=== PATIENT | male | born 1970 | race Caucasian/White ===

== ENCOUNTER 2018-02-04 10:47 | Emergency (ER) | END 2018-02-04 14:10 | disposition home or self-care (01) ==

== ENCOUNTER 2018-02-28 13:56 | Emergency (ER) | END 2018-02-28 19:00 | disposition home or self-care (01) ==

== ENCOUNTER 2018-10-16 16:11 | Emergency (ER) | payer MEDICAID ==
[~2018-10-16] VITALS: Ht 172.7 cm; Wt 78.2 kg
[~2018-10-16 16:11] MED LIST: IBUP800T48 PO; TRAM50TA2 PO
[2018-10-16 16:15] VITALS: Ht 172.7 cm; Wt 78.2 kg
[2018-10-16] MEDS ORDERED: ASPIRIN 325 MG TAB PO STA (19:35)
[2018-10-16] MEDS ORDERED: NITROGLYCERIN 2% 1 GM OINT PKT TD STA (19:35)
--- NOTE | 2018-10-16 19:42 | ERD ---
ER Documentation Chief Complaint Chief Complaint Complains of chest pain since this am HPI This a 47-year-old male with a history of high cholesterol who is complaining of chest pain. The patient says he has had off and on substernal chest pressure with left-sided sharp pain with left arm numbness for the past 2 days. He says it happens at rest or with exertion. He is a very poor historian. No radiation into the neck back or abdomen. No shortness of breath no palpitations. He says sometimes is worse when he pushes on it but is a different type of pain. No heartburn. No prior history of cardiac disease. Does not smoke ROS All systems reviewed and are negative except as per history of present illness. Medications Home Meds Discontinued Scripts Tramadol HCl (Tramadol HCl) 50 Mg Tablet, 50 MG PO Q6 PRN for PAIN, #20 TAB Prov:DALTON BURROUGHS PA-C 02/28/18 Ibuprofen* (Motrin*) 800 Mg Tab, 800 MG PO Q6H PRN for PAIN AND OR ELEVATED TE MP, #30 TAB Prov:JIM TREJO MD 02/04/18 Allergies Allergies: Coded Allergies: acetaminophen (Unverified Adverse Reaction, Unknown, 10/16/18) PMhx/Soc History of Surgery: No Anesthesia Reaction: No Hx Neurological Disorder: No Hx Respiratory Disorders: No Hx Cardiac Disorders: Yes (HTN,HIGH CHOLESTEROL) Hx Psychiatric Problems: No Hx Miscellaneous Medical Probl: No Hx Alcohol Use: No Hx Substance Use: No Hx Tobacco Use: No FmHx Family History: No coronary disease Physical Exam Vitals Vital Signs Date Temp Pulse Resp B/P (MAP) Pulse Ox O2 O2 Flow FiO2 Time Delivery Rate 10/16/18 98.4 75 20 123/79 97 16:15 (94) Physical Exam Const: Well-developed, well-nourished Head: Atraumatic, normocephalic Eyes: Normal Conjunctiva, PERRLA, EOMI, normal sclera, no nystagmus ENT: Normal External Ears, Nose and Mouth, moist mucus membranes. Neck: Full range of motion. No meningismus, no lymphadenopathy. Resp: Clear to auscultation bilaterally, no wheezing, rhonchi, rales, the anterior chest is somewhat tender to palpation but he says it is a bit different pain he is having at home Cardio: Regular rate and rhythm, no murmurs, S1 S2 present Abd: Soft, non tender x 4, non distended. Normal bowel sounds, no guarding or rebound, no pulsitile abdominal masses or bruits Skin: No petechiae or rashes, no ecchymosis , no maculopapular rash Back: No midline or flank tenderness Ext: No cyanosis, or edema, FROM x 4, normal inspection, neurovascularly intact x 4 Neur: Awake and alert, STR 5/5 x 4, sensation intact x 4, no focal findings, cerebellum intact Psych: Normal Mood and Affect Result Diagram: 10/16/18194610/16/181947 Results 24 hrs Laboratory Tests Test 10/16/18 19:47 10/16/18 19:48 White Blood Count 7.7 10^3/ul Red Blood Count 4.89 10^6/ul Hemoglobin 14.9 g/dl Hematocrit 44.5 % Mean Corpuscular Volume 91.0 fl Mean Corpuscular Hemoglobin 30.5 pg Mean Corpuscular Hemoglobin Concent 33.5 g/dl Red Cell Distribution Width 12.4 % Platelet Count 182 10^3/UL Mean Platelet Volume 10.4 fl Immature Granulocytes % 0.300 % Neutrophils % 65.8 % Lymphocytes % 22.8 % Monocytes % 7.8 % Eosinophils % 2.9 % Basophils % 0.4 % Nucleated Red Blood Cells % 0.0 /100WBC Immature Granulocytes # 0.020 10^3/ul Neutrophils # 5.1 10^3/ul Lymphocytes # 1.8 10^3/ul Monocytes # 0.6 10^3/ul Eosinophils # 0.2 10^3/ul Basophils # 0.0 10^3/ul Nucleated Red Blood Cells # 0.0 10^3/ul Sodium Level 141 mmol/L Potassium Level 4.0 mmol/L Chloride Level 102 mmol/L Carbon Dioxide Level 31 mmol/L Anion Gap 8 Blood Urea Nitrogen 28 mg/dl Creatinine 1.47 mg/dl Est Glomerular Filtrat Rate mL/min 51 mL/min Glucose Level 101 mg/dl Calcium Level 9.9 mg/dl Total Bilirubin 0.2 mg/dl Direct Bilirubin 0.00 mg/dl Indirect Bilirubin 0.2 mg/dl Aspartate Amino Transf (AST/SGOT) 22 IU/L Alanine Aminotransferase (ALT/SGPT) 21 IU/L Alkaline Phosphatase 50 IU/L Troponin I < 0.012 ng/ml Total Protein 7.9 g/dl Albumin 4.4 g/dl Globulin 3.50 g/dl Albumin/Globulin Ratio 1.25 Current Medications Medications Dose Sig/Adamaris Start Time Status Last (Trade) Ordered Route PRN Stop Time Admin Dose Reason Admin Aspirin 325 mg ONCE STAT 10/16/18 DC 10/16/18 (Aspirin) PO 19:35 10/16/18 20:04 19:36 1 inch ONCE STAT 10/16/18 DC 10/16/18 Nitroglycerin TD 19:35 10/16/18 20:05 19:36 (Nitroglyceri n 2% Oint) Procedures/MDM EKG: Rate/Rhythm: Normal Sinus Rhythm,NL intervals QRS, ST, QT: NORMAL IN, QRS, QT] Impression: NORMAL EKG Ordering MD: MICHEAL TREVINO DO Location: E/R Room/Bed: PROCEDURE: XR Chest. CLINICAL INDICATION: Chest pain TECHNIQUE: Single frontal view of the chest was obtained COMPARISON: Chest x-ray 02/28/2018 FINDINGS: The cardiomediastinal silhouette is within normal limits. No pneumothorax, pleural effusion, or consolidation is identified. There is no evidence of pulm onary vascular congestion. There is degenerative enthesopathy of the visualized spine. IMPRESSION: No evidence of an acute cardiopulmonary process. RPTAT: HRC Physician Stefany Date Time Electronically viewed and signed by Krzysztof Montes Physician on 10/16/2018 20:36 RC/ CC: MICHEAL TREVINO DO [id number] Cardiac Admit MDM: Patient's symptoms are concerning for cardiac cause will require inpatient workup and continuous monitoring. Further w/u for ischemia, arrhythmia, PE or dissection will be deferred to the inpatient team. Departure Diagnosis: Primary Impression: Chest pain Chest pain type: unspecified Qualified Codes: R07.9 - Chest pain, unspecified Condition: Stable MICHEAL TREVINO DO Oct 16, 2018 19:42
[2018-10-16] MEDS ORDERED: ONDANSETRON 4 MG INJ IV PRN ×2 (21:30→22:00)
--- NOTE | 2018-10-16 21:34 | HP ---
Date/Time of Note Date/Time of Note DATE: 10/16/18 TIME: 21:34 Assessment/Plan VTE Prophylaxis SCD applied (from Nsg): Yes Pharmacological prophylaxis: NA/contraindicated Pharm contraindication: low risk/ambulating Lines/Catheters IV Catheter Type (from Nrsg): Saline Lock Assessment/Plan Hospital Course This is a 47-year male being admitted to the telemetry floor for: #1 chest pain: Rule out ACS versus musculoskeletal: Patient does have palpable tenderness over the sternal area, however given his numbness of the left arm there is concern in the ED for possible ACS. Initial troponin was negative. EKG was nonischemic. Recommendation is to admit the patient to telemetry trend cardiac enzymes and obtain an echocardiogram. However patient reports that he is feeling better and that he wants to go home. I did recommend the patient to stay to have a formal cardiac evaluation however patient would like to go home AGAINST MEDICAL ADVICE. I did explain the risks and benefits of going home such as . Patient understands however he still wishes to go home AGAINST MEDICAL ADVICE. #2 chronic kidney disease: Creatinine is 1.47 which appears to be around his baseline. Avoid nephrotoxic agents. Recommend ordering urine microalbumin and avoiding NSAIDs. Patient however would like to leave AGAINST MEDICAL ADVICE. #3 DVT GI prophylaxis: SCDs, no GI prophylaxis indicated Disposition: Recommendation was for the patient to be admitted to the telemetry floor for monitoring however patient reports that he is feeling better and that he wants to go home. The risks and benefits of leaving AGAINST MEDICAL ADVICE such as , were explained to the patient however he would still like to leave AMA. Patient will be filling out the AMA form. Result Diagram: 10/16/18194610/16/181947 Results 24hrs Laboratory Tests Test 10/16/18 19:47 10/16/18 19:48 White Blood Count 7.7 Red Blood Count 4.89 Hemoglobin 14.9 Hematocrit 44.5 Mean Corpuscular Volume 91.0 Mean Corpuscular Hemoglobin 30.5 Mean Corpuscular Hemoglobin Concent 33.5 Red Cell Distribution Width 12.4 Platelet Count 182 Mean Platelet Volume 10.4 Immature Granulocytes % 0.300 Neutrophils % 65.8 Lymphocytes % 22.8 Monocytes % 7.8 Eosinophils % 2.9 Basophils % 0.4 Nucleated Red Blood Cells % 0.0 Immature Granulocytes # 0.020 Neutrophils # 5.1 Lymphocytes # 1.8 Monocytes # 0.6 Eosinophils # 0.2 Basophils # 0.0 Nucleated Red Blood Cells # 0.0 Sodium Level 141 Potassium Level 4.0 Chloride Level 102 Carbon Dioxide Level 31 Anion Gap 8 Blood Urea Nitrogen 28 H Creatinine 1.47 H Est Glomerular Filtrat Rate mL/min 51 L Glucose Level 101 Calcium Level 9.9 Total Bilirubin 0.2 Direct Bilirubin 0.00 Indirect Bilirubin 0.2 Aspartate Amino Transf (AST/SGOT) 22 Alanine Aminotransferase (ALT/SGPT) 21 Alkaline Phosphatase 50 Troponin I < 0.012 Total Protein 7.9 Albumin 4.4 Globulin 3.50 H Albumin/Globulin Ratio 1.25 HPI/ROS Admit Date/Time Admit Date/Time Hx of Present Illness Chief complaint: Chest pain This a 47-year-old male with a history of high cholesterol who is complaining of chest pain. The patient says he has had off and on substernal chest pressure with left-sided sharp pain with left arm numbness for the past 2 days. He says it happens at rest or with exertion. He does report that while at work a wooden object may have hit his chest. No radiation into the neck back or abdomen. No shortness of breath no palpitations. He says sometimes is worse when he pushes on it but is a different type of pain. No heartburn. No prior history of cardiac disease. Allergies: Ibuprofen Medications: None ROS Const: As per HPI Eyes : No pain discharge or redness or change in visual acuity ENT: No pain, sore throat, congestion, congestion, dysphagia or discharge Respiratory: No shortness of breath, cough, sputum, wheezing, or pleuritic pain Cardiovascular: As per HPI GI : no change in appetite, abdominal pain, nausea, vomiting, diarrhea, constipation, or change in the color his stool Genitourinary: No dysuria, hematuria, flank pain , discharge or CVA tenderness Musculoskeletal: No joint pain, back pain, neck pain, restricted range of motion in neck or joints Skin: No rash, bruising or hives Neuro: No headache, dizziness, syncope, seizure, focal weakness Endocrine: No polyuria, polydipsia, temperature intolerance Psych: No hallucination, depression, anxiety or suicidal ideation PMH/Family/Social Past Medical History Chronic kidney diseaseunspecified Medications Current Medications Ondansetron HCl (Zofran Inj) 4 mg ER BRIDGE PRN IV NAUSEA AND/OR VOMITING; Start 10/16/18 at 21:30; Stop 10/17/18 at 21:29 Coded Allergies: acetaminophen (Unverified Adverse Reaction, Unknown, 10/16/18) Past Surgical History Past Surgical Hx: no surgical history Family History Significant Family History: no pertinent family hx Social History Alcohol Use: none Smoking Status: Never smoker Drug Use: none Exam/Review of Systems Vital Signs Vitals Vital Signs Date Temp Pulse Resp B/P (MAP) Pulse Ox O2 O2 Flow FiO2 Time Delivery Rate 10/16/18 98.4 75 20 123/79 97 16:15 (94) Exam Exam General: Patient is a pleasant male currently sitting upright in bed in no acute distress HEENT: Atraumatic, normocephalic. The pupils are equal, round and reactive. Extraocular motor are intact Neck: Supple with full range of motion. No rigidity or meningismus Chest: Tenderness to palpation over the sternal area Lungs: Clear to auscultation bilaterally no crackles rales or wheezing Heart: Normal S1-S2, Regular rhythm and rate. No overt murmurs appreciated on auscultation Abdomen: Soft , nontender, nondistended , bowel sounds are present. No guarding no rebound tenderness , No masses or organomegaly. No costovertebral temporal angle mass Extremities: Normal to inspection, no edema no cyanosis Neurologic: Normal mental status, speech normal, cranial nerves II through XII are intact, motor and sensory are intact, no focal weakness Additional Comments PROCEDURE: XR Chest. CLINICAL INDICATION: Chest pain TECHNIQUE: Single frontal view of the chest was obtained COMPARISON: Chest x-ray 02/28/2018 FINDINGS: The cardiomediastinal silhouette is within normal limits. No pneumothorax, pleural effusion, or consolidation is identified. There is no evidence of pulmonary vascular congestion. There is degenerative enthesopathy of the visualized spine. IMPRESSION: No evidence of an acute cardiopulmonary process. RPTAT: HRC Physician Stefany Date Time Electronically viewed and signed by Krzysztof Montes Physician on 10/16/2018 20:36 RC/ CC: MICHEAL TREVINO DO [id number] EKG: Rate/Rhythm: Normal Sinus Rhythm,NL intervals QRS, ST, QT: NORMAL VA, QRS, QT] Impression: NORMAL EKG SHEREE YOUNG Oct 16, 2018 21:34
[2018-10-16 21:50] VITALS: BP 124/91; PULSE 62; RESP 15
[2018-10-16] MEDS ORDERED: DOCUSATE SODIUM 100 MG CAP PO PRN (22:00)
[2018-10-16] MEDS ORDERED: ACETAMINOPHEN 325 MG TAB PO PRN (22:00)
[2018-10-16] MEDS ORDERED: BISACODYL (EC) 5 MG TAB PO PRN (22:00)
[2018-10-16] MEDS ORDERED: NACL 0.9% 3 ML SYG IV SCH (22:00)
[2018-10-16] MEDS ORDERED: NITROGLYCERIN (SL) 0.4 MG TAB SL PRN (22:00)
[2018-10-17] MEDS ORDERED: ASPIRIN 81 MG TAB PO SCH (09:00)
== END 2018-10-16 21:50 | disposition left against medical advice (07) ==
LOC: E/R 16:11 → CANBEDREQ 10-18 19:54
DX: R07.9 Chest pain, unspecified (principal); I10 Essential (primary) hypertension
CPT/HCPCS: 36415; 71045; 80053; 84484; 85025; 93005; Z7502; Z7610

== ENCOUNTER 2018-10-25 14:12 | Emergency (ER) | payer MEDICAID ==
[~2018-10-25] VITALS: Wt 77.0 kg
--- NOTE | 2018-10-25 14:46 | ERD ---
ER Documentation Chief Complaint Chief Complaint bib self, cc: chest pain HPI The patient is a 47-year-old male, presenting to the ER because of intermittent left-sided chest pain, worse with movement, denies chest pain with vomiting/radiation/exertion/diaphoresis, dyspnea, abdominal pain, vomiting, dysuria diarrhea. He was seen on October 16, 2018 and had extensive studies that were unremarkable He does not smoke nor drink nor does illicit drug. Past medical history: Peptic ulcer Past surgical history: None ROS All systems reviewed and are negative except as per history of present illness. Medications Home Meds No Active Prescriptions or Reported Meds Allergies Allergies: Coded Allergies: acetaminophen (Unverified Adverse Reaction, Unknown, 10/16/18) PMhx/Soc History of Surgery: No Anesthesia Reaction: No Hx Neurological Disorder: No Hx Respiratory Disorders: No Hx Cardiac Disorders: Yes (HTN,HIGH CHOLESTEROL) Hx Psychiatric Problems: No Hx Miscellaneous Medical Probl: No Hx Alcohol Use: No Hx Substance Use: No Hx Tobacco Use: No Physical Exam Vitals Vital Signs Date Temp Pulse Resp B/P (MAP) Pulse Ox O2 O2 Flow FiO2 Time Delivery Rate 10/25/18 82 20 130/80 99 Room Air 15:35 (97) 10/25/18 99.4 84 19 111/64 99 14:14 (80) Physical Exam Const: No acute distress. Head: Atraumatic. Eyes: Normal Conjunctiva. ENT: Normal External Ears, Nose and Mouth. Neck: Full range of motion. No meningismus. Resp: Clear to auscultation bilaterally. Cardio: Regular rate and rhythm. Left chest discomfort on palpation, no crepitus Abd: Soft, non distended, normal bowel sounds, non tender. Skin: No petechiae or rashes. Back: No midline or flank tenderness. Ext: No cyanosis, or edema. Neur: Awake and alert. No focal deficit Psych: Normal Mood and Affect. Procedures/MDM EKG: Read by emergency physician Rate/Rhythm: Normal Sinus Rhythm 77 beats/min QRS, ST, T-waves: No ST elevation, no T inversion Impression: Normal EKG MEDICAL MAKING DECISION: The patient is a 47-year-old male, presenting with intermittent left-sided chest discomfort, most likely musculoskeletal. I do not suspect any acute ACS, is stable for o/p follow-up The differential diagnoses considered include but are not limited to acute coronary syndrome, acute myocardial infarction, pericarditis, pulmonary embolism, aortic dissection, pneumonia, pleural effusion, pneumothorax, GERD, chest wall pain. Departure Diagnosis: Primary Impression: Chest pain Condition: Good Comments I discussed the findings with the patient. I advised the patient to follow-up with the primary physician in about 2-3 days, sooner if needed and return if any concern. Disclaimer: Inadvertent spelling and grammatical errors are likely due to EHR/dictation software use and do not reflect on the overall quality of patient care. Also, please note that the electronic time recorded on this note does not necessarily reflect the actual time of the patient encounter. ALVARO SANCHEZ MD Oct 25, 2018 14:46
[2018-10-25 15:35] VITALS: BP 130/80; PULSE 82; RESP 20
== END 2018-10-25 15:35 | disposition home or self-care (01) ==
LOC: E/R 14:12
DX: R07.9 Chest pain, unspecified (principal); I10 Essential (primary) hypertension
CPT/HCPCS: 93005; Z7502

== ENCOUNTER 2018-11-23 14:04 | Emergency (ER) | payer MEDICAID ==
[~2018-11-23] VITALS: Ht 162.6 cm; Wt 79.3 kg
[2018-11-23 14:21] VITALS: BP 122/64; PULSE 106; RESP 20; Ht 162.6 cm; Wt 79.3 kg
--- NOTE | 2018-11-23 19:00 | ERD ---
ER Documentation Chief Complaint Chief Complaint LEFT ARM/HAND PAIN HPI 48-year-old male, presents the emergency department, complaining of left ring finger pain after sustaining direct trauma 2 weeks ago. The patient states that in the mornings he feels stiffness of the digit that is slowly improved during the day. He denies distal weakness, numbness or tingling. No medications taken for pain. ROS All systems reviewed and are negative except as per history of present illness. Medications Home Meds Active Scripts Ibuprofen* (Motrin*) 400 Mg Tab, 400 MG PO Q8, #30 TAB Prov:NICKY LUGO MD 11/23/18 Allergies Allergies: Coded Allergies: acetaminophen (Unverified Adverse Reaction, Unknown, 10/16/18) PMhx/Soc History of Surgery: No Anesthesia Reaction: No Hx Neurological Disorder: No Hx Respiratory Disorders: No Hx Cardiac Disorders: Yes (HTN,HIGH CHOLESTEROL) Hx Psychiatric Problems: No Hx Miscellaneous Medical Probl: No Hx Alcohol Use: No Hx Substance Use: No Hx Tobacco Use: No Smoking Status: Never smoker Physical Exam Vitals Vital Signs Date Temp Pulse Resp B/P (MAP) Pulse Ox O2 O2 Flow FiO2 Time Delivery Rate 11/23/18 98.1 106 20 122/64 98 14:21 (83) Physical Exam Const: No acute distress Head: Atraumatic Eyes: Normal Conjunctiva ENT: Normal External Ears, Nose and Mouth. Neck: Full range of motion. No meningismus. Resp: Clear to auscultation bilaterally Cardio: Regular rate and rhythm, no murmurs Abd: Soft, non tender, non distended. Normal bowel sounds Skin: No petechiae or rashes Back: No midline or flank tenderness Ext: Left hand with normal inspection, full range of motion of all digits, no deformity, mild tenderness over the third MCP area. No crepitus, no cyanosis, or edema Neur: Awake and alert Psych: Normal Mood and Affect Procedures/MDM Differential diagnosis considered include but not limited are: sprain/strain, ligament injury, fracture, dislocation, low suspicion for acute infectious process. Soft compartments, neurovascular exam grossly intact. Physical examination and clinical presentation consistent with healing left fourth finger sprain. Results and clinical impression discussed with [patient] who agrees with management. The patient is stable to be treated outpatient and will be discharged home with recommendations for NSAIDs 3 times daily for 5 days and close monitoring. The patient was instructed to follow up with the primary care provider in the next 48h. If symptoms persist, worsen or new symptoms develop, then patient should return to the ED immediately. Instructions explained and given to patient with acknowledgment and demonstrated understanding. Disclaimer: Inadvertent spelling and grammatical errors are likely due to EHR/dictation software use and do not reflect on the overall quality of patient care. Also, please note that the electronic time recorded on this note does not necessarily reflect the actual time of the patient encounter. Departure Diagnosis: Primary Impression: Injury of left ring finger Encounter type: sequela Qualified Codes: S69.92XS - Unspecified injury of left wrist, hand and finger(s), sequela Additional Impression: Sprain of finger of left hand Encounter type: sequela Finger: ring finger Sprain of finger site: metac arpophalangeal joint Qualified Codes: S63.655S - Sprain of metacarpophalangeal joint of left ring finger, sequela Condition: Stable Additional Instructions: Muchas nasra por [facility] para avilez servicio. Esperamos que en avilez visita a la sarath de emergencia avilez problema medico haya sido solucionado y que se sienta mucho mejor. Para estar seguros que avilez mejoria sigue en proceso, le pedimos el favor de hacer christina leif de seguimiento medico con avilez doctor primario en los proximos 2-4 moe. Lleve con usted estos documentos y las medicinas recetadas. Si christina sintomas empeoran, NO SE ESPERE, por favor regrese a sarath de emergencia INMEDIATAMENTE. En tisha que usted no tenga un mdico de atencin primaria: Llame al mdico o clnica comunitaria de referencia que aparece abajo odilon las horas de consultorio para hacer hcristina leif para que le vean. CLINICAS: [facility] [phone] [id number] [facility] [phone] [facility] [phone] [facility] [phone] [place] [phone] [facility] [phone] NICKY TAYLOR MD Nov 23, 2018 19:00
[2018-11-23] MEDS ORDERED: IBUP-1561 PO (20:22)
== END 2018-11-23 20:23 | disposition home or self-care (01) ==
LOC: FTE 14:04
DX: S63.655A Sprain of metacarpophalangeal joint of left ring finger, initial encounter (principal); I10 Essential (primary) hypertension; X58.XXXA Exposure to other specified factors, initial encounter; Y92.9 Unspecified place or not applicable
CPT/HCPCS: 73130; Z7502

== ENCOUNTER 2019-05-16 16:21 | Emergency (ER) | payer SELFPAY ==
[~2019-05-16] VITALS: Ht 170.2 cm; Wt 74.9 kg
[~2019-05-16 16:21] MED LIST changes: +IBUP-1561 PO; -IBUP800T48 PO; -TRAM50TA2 PO
[2019-05-16 16:24] VITALS: Ht 170.2 cm; Wt 74.9 kg
--- NOTE | 2019-05-16 17:26 | ERD ---
ER Documentation Chief Complaint Chief Complaint Pt reports Larm and lip numbness that comes and goes HPI 48-year-old male presents with complaint of dizziness and back pain when he is out in the sun. In addition he states that he is having some numbness in his left hand for the past 8 days. States the numbness is intermittent. denies any headaches, fevers, photophobia, neck rigidity, chest pain, shortness of breath, abdominal pain, leg swelling, leg erythema, malignancy, recent surgeries, dyspnea. ROS All systems reviewed and are negative except as per history of present illness. Medications Home Meds Active Scripts Ibuprofen* (Motrin*) 400 Mg Tab, 400 MG PO Q8, #30 TAB Prov:NICKY LUGO MD 11/23/18 Allergies Allergies: Coded Allergies: acetaminophen (Unverified Adverse Reaction, Unknown, 05/16/19) PMhx/Soc History of Surgery: No Anesthesia Reaction: No Hx Neurological Disorder: No Hx Respiratory Disorders: No Hx Cardiac Disorders: Yes (HTN,HIGH CHOLESTEROL) Hx Psychiatric Problems: No Hx Miscellaneous Medical Probl: No Hx Alcohol Use: No Hx Substance Use: No Hx Tobacco Use: No Smoking Status: Never smoker FmHx Family History: No diabetes, No coronary disease, No other Physical Exam Vitals Vital Signs Date Temp Pulse Resp B/P (MAP) Pulse Ox O2 O2 Flow FiO2 Time Delivery Rate 05/16/19 98.1 59 18 135/88 99 Room Air 21:35 (104) 05/16/19 98.9 85 16 104/59 100 16:24 (74) Physical Exam Const: No acute distress Head: Atraumatic Eyes: Normal Conjunctiva ENT: Normal External Ears, Nose and Mouth. Neck: Full range of motion. No meningismus. Resp: Clear to auscultation bilaterally Cardio: Regular rate and rhythm, no murmurs Abd: Soft, non tender, non distended. Normal bowel sounds Skin: No petechiae or rashes Back: No midline or flank tenderness Ext: No cyanosis, or edema Neur: Awake and alert Psych: Normal Mood and Affect Neuro: M/S: Alert and oriented Face: EOMI, face and pharynx with normal sensation and function Motor: Normal strength throughout Sensation: Normal sensation throughout Speech: Normal Cerebel: Normal coordination Normal gait Normal finger to nose DTR: 2+ and symmetric upper/lower extremities Back Exam: Skin: No bruising or rash Compartments: Soft Motor: Normal flexion and extension of bilateral hip/knee/ankle/foot Sensation: Intact to light touch throughout Bones: No midline TTP Result Diagram: 05/16/19 1726 05/16/19 1726 Results 24 hrs Laboratory Tests Test 05/16/19 17:26 White Blood Count 7.1 10^3/ul Red Blood Count 4.97 10^6/ul Hemoglobin 15.4 g/dl Hematocrit 44.9 % Mean Corpuscular Volume 90.3 fl Mean Corpuscular Hemoglobin 31.0 pg Mean Corpuscular Hemoglobin Concent 34.3 g/dl Red Cell Distribution Width 12.5 % Platelet Count 188 10^3/UL Mean Platelet Volume 10.5 fl Immature Granulocytes % 0.100 % Neutrophils % 68.6 % Lymphocytes % 20.5 % Monocytes % 8.1 % Eosinophils % 2.3 % Basophils % 0.4 % Nucleated Red Blood Cells % 0.0 /100WBC Immature Granulocytes # 0.010 10^3/ul Neutrophils # 4.8 10^3/ul Lymphocytes # 1.5 10^3/ul Monocytes # 0.6 10^3/ul Eosinophils # 0.2 10^3/ul Basophils # 0.0 10^3/ul Nucleated Red Blood Cells # 0.0 10^3/ul Prothrombin Time 12.9 Sec Prothrombin Time Ratio 1.0 INR International Normalized Ratio 0.96 Activated Partial Thromboplast Time 26.5 Sec Urine Color YELLOW Urine Clarity CLEAR Urine pH 5.0 Urine Specific [place] 1.010 Urine Ketones NEGATIVE mg/dL Urine Nitrite NEGATIVE mg/dL Urine Bilirubin NEGATIVE mg/dL Urine Urobilinogen NEGATIVE mg/dL Urine Leukocyte Esterase NEGATIVE Valerie/ul Urine Hemoglobin NEGATIVE mg/dL Urine Glucose NEGATIVE mg/dL Urine Total Protein NEGATIVE mg/dl Sodium Level 139 mmol/L Potassium Level 3.6 mmol/L Chloride Level 101 mmol/L Carbon Dioxide Level 29 mmol/L Anion Gap 9 Blood Urea Nitrogen 17 mg/dl Creatinine 1.65 mg/dl Est Glomerular Filtrat Rate mL/min 44 mL/min Glucose Level 110 mg/dl Calcium Level 9.6 mg/dl Total Bilirubin 0.5 mg/dl Direct Bilirubin 0.00 mg/dl Indirect Bilirubin 0.5 mg/dl Aspartate Amino Transf (AST/SGOT) 22 IU/L Alanine Aminotransferase (ALT/SGPT) 19 IU/L Alkaline Phosphatase 41 IU/L Creatine Kinase 82 IU/L Troponin I < 0.012 ng/ml Total Protein 7.4 g/dl Albumin 4.3 g/dl Globulin 3.10 g/dl Albumin/Globulin Ratio 1.38 Procedures/MDM DIAGNOSTIC IMAGING REPORT Patient: MICHELL LESTER : 1970 Age: 48 Sex: M MR #: [id number] DOS: 05/16/19 0000 Ordering MD: MATTHEW ASCENCIO Location: [facility] Room/Bed: PROCEDURE: XR Chest PA CLINICAL INDICATION: Cough TECHNIQUE: A PA radiograph of the chest was submitted. COMPARISON: 10/16/2018 FINDINGS: Support Hardware: None Cardiovascular: The cardiovascular silhouette appears unremarkable. Lung Lino: The lung lino and pleural spaces are clear. Pleural Spaces: The left costophrenic angle remains slightly blunted which more likely represents pleural parenchymal scarring than a small pleural fluid accumulation. No pneumothorax is identified. Osseous Structures: The osseous structures appear intact. Soft Tissues: Unremarkable IMPRESSION: 1. Persistent blunting of the left costophrenic angle that more likely represents pleural parenchymal scarring than a small pleural fluid accumulation. 2. Otherwise, stable and unremarkable PA chest. Physician Cesar Date Time Electronically viewed and signed by Physician Cesar on 05/16/2019 17:36 RH/ CC: MATTHEW ASCENCIO [id number] DIAGNOSTIC IMAGING REPORT Patient: MICHELL LESTER : 1970 Age: 48 Sex: M MR #: [id number] DOS: 05/16/19 1706 Ordering MD: MATTHEW ASCENCIO Location: E Room/Bed: PROCEDURE: CT Brain without contrast. CLINICAL INDICATION: Numbness TECHNIQUE: A CT of the brain was performed utilizing axial imaging from the skull base through the vertex without IV contrast. Multiplanar reformatted images were made. Images were reviewed on a PACS workstation. CTDIvol: 38.54 mGy DLP: 634.23 mGycm DICOM images are available. One or more of the following dose reduction techniques were utilized: 1.) Automated exposure control 2.) Adjustment of the mA +/- kV according to patient's size 3.) Use of iterative reconstruction technique. COMPARISON: None FINDINGS: CALVARIUM: Regional bones are intact. SINUSES: Paranasal sinuses and mastoid air cells are clear. BRAIN: There is no evidence of intracranial hemorrhage. Prominence of ventricles and cisterns is normal for age. May - white differentiation is preserved and there is no evidence of an acute or subacute territorial infarction. No intracranial mass or mass effect. IMPRESSION: Negative unenhanced head CT. RPTAT: [facility] Physician Ry Date Time Electronically viewed and signed by Physician Ry on 05/16/2019 17:56 xB/ CC: MATTHEW ASCENCIO [id number] EKG: Rate/Rhythm: Normal Sinus Rhythm QRS, ST, T-waves: No changes consistent w/ acute ischemia Impression: No evidence of ischemia or arrhythmia MDM: CT scan was within normal limits. All lab results within normal limits aside from elevated creatinine. Patient stated that he is aware that he has kidney disease and he follows up with his physician regarding this. I advised patient to follow-up with his physician within 24 hours regarding his elevated creatinine. Patient understood and agreed to do so with second hand paper machine present. Th is time of low suspicion of skull fracture, CVA, acute kidney failure, myocardial infarction, or any other emergent condition. Regarding patient's back pain, back exam was completely benign. Have low suspicion for epidural abscess, cauda equina, abdominal aortic aneurysm, pyelonephritis, aortic d issection, spinal fracture, or other emergent conditions based on patient history and exam findings. Patient told if they experience leg weakness or numbness, or incontinence they need to return to the ER immediately. At this time, patient is stable for discharge and outpatient management. I have instructed the patient to follow-up with his/her primary care physician in 1 day. I have discussed with the patient the possibility of needing to see a specialist for further workup and imaging studies if symptoms persist. I have instructed the patient to promptly return to the ER for any new or worsening symptoms including but not limited to increased pain, fever, nausea, vomiting, weakness or LOC. The patient and/or family expressed understanding of and agreement with this plan. All questions were answered. Home care instructions were provided. Communication with patient throughout the ER course was performed using a second hand paper machine . Patient gave verbal confirmation to the practitioner, through the second hand paper machine, that they understood everything that was being said to them. DISCLAIMER: Inadvertent spelling and grammatical errors are likely due to EHR/dictation software use and do not reflect on the overall quality of patient care. Also, please note that the electronic time recorded on this note does not necessarily reflect the actual time of the patient encounter. Departure Diagnosis: Primary Impression: Numbness Additional Impressions: Elevated serum creatinine Back pain Dizziness Condition: Stable MATTHEW ASCENCIO May 16, 2019 17:26
[2019-05-16 21:35] VITALS: BP 135/88; PULSE 59; RESP 18
== END 2019-05-16 21:35 | disposition home or self-care (01) ==
LOC: FTE 16:21
DX: R20.0 Anesthesia of skin (principal); I10 Essential (primary) hypertension; M54.9 Dorsalgia, unspecified; R79.89 Other specified abnormal findings of blood chemistry
CPT/HCPCS: 70450; 71045; 80053; 81003; 82550; 84484; 85025; 85610; 85730; 93005